=== PATIENT | female | born 1955 | race Caucasian/White ===

== ENCOUNTER 2017-01-02 02:10 | Emergency (ER) | payer OTHER ==
[2017-01-02 02:17] VITALS: BP 115/77; PULSE 90; TEMP 97.4; BMI 35.2
--- NOTE | 2017-01-02 02:31 | PDOC ---
"History of Present Illness - General Chief Complaint: Injury Stated Complaint: S/P FALL Time Seen by Provider: 01/02/17 02:11 - History of Present Illness Initial Comments: This 61-year-old woman with a history hypertension and Lalo's thyroiditis presents with history of falling in her driveway just prior to presentation. Patient was walking outside and stumbled on uneven pavement (no grade present in the driveway). Patient fell forward on outstretched hands hitting her chin and bilateral wrists. No loss of consciousness. Patient denies headache/neck pain/chest pain/shortness of breath/abdominal pain. Patient has mild contusions of bilateral knees but is able to walk without difficulty. Patient has pain and swelling in both wrist area (left greater than right); she also has bleeding from a small cut below her chin and soreness when she opens her mouth. She denies malocclusion or loosening of her teeth. Patient denies lightheadedness/vertigo or other impairment of gait prior to falling. Patient cannot recall previous tetanus immunization Past History - Past Medical History Allergies/Adverse Reactions: Allergies Allergy/AdvReac Type Severity Reaction Status Date / Time No Known Drug Allergies Allergy Verified 10/30/15 11:58 KIWI Allergy Intermediate MOUTH Uncoded 10/30/15 11:58 SWELLING, ITCHING Bee stings Allergy Swelling Uncoded 08/25/13 09:08 Home Medications: Ambulatory Orders Calcium Carbonate/Vitamin D3 [Calcium 600-Vit D3 200 Tablet] 1 each PO DAILY tablet 12/14/12 Cholecalciferol (Vitamin D3) [Vitamin D3] 1,000 unit PO DAILY tablet 05/12/13 Ascorbic Acid/Collagen Hydr [Collagen Plus Vit C Capsule] 1 each PO DAILY capsule 12/24/13 Hydroxychloroquine So4 [Plaquenil -] 200 mg PO BID tablet 08/19/14 Methotrexate Sodium [Methotrexate] 2.5 mg PO WEEKLY tablet 08/19/14 Biotin/Calcium Carbonate [Biotin 800 Mcg Tablet] 1 each PO DAILY tablet Folic Acid 2 mg PO DAILY tablet 12/09/14 Oxycodone HCl/Acetaminophen [Percocet 5-325 mg Tablet] 1 tab PO Q6H PRN #12 tablet MDD 3 tabs 01/02/17 Anemia: No Asthma: No Cancer: No Cardiac Disorders: Yes (MICROVASCULAR DISORDER- OCC. ANGINA) CVA: No COPD: No CHF: No Dementia: No Diabetes: No GI Disorders: No Disorders: No HTN: Yes (DX 2010) Hypercholesterolemia: No Liver Disease: No Psychiatric Problems: Yes Seizures: No Thyroid Disease: Yes (HASHIMOTOS) - Surgical History Abdominal Surgery: Yes (C- SECTION) Appendectomy: Yes (1999) Cardiac Surgery: No Cholecystectomy: No Lung Surgery: No Neurologic Surgery: No Orthopedic Surgery: No - Immunization History Td Vaccination: Yes Immunization Up to Date: (UNKNOWN) - Suicide/Smoking/Psychosocial Hx Smoking Status: Yes Smoking History: Former smoker Have you smoked in the past 12 months: Yes Number of Cigarettes Smoked Daily: 0 If you are a former smoker, when did you quit?: 09/2015 Information on smoking cessation initiated: No Hx Alcohol Use: No Drug/Substance Use Hx: No Substance Use Type: Alcohol Hx Substance Use Treatment: No Review of Systems - Review of Systems Able to Perform ROS?: Yes Comments:: 12 point review of systems is negative except for what is noted in the history of present illness *Physical Exam - Vital Signs Last Vital Signs Temp Pulse Resp BP Pulse Ox 97.4 F L 90 14 115/77 96 01/02/17 02:12 01/02/17 02:12 01/02/17 02:12 01/02/17 02:12 01/02/17 02:12 - Physical Exam Comments: GENERAL: Adult female, in moderate distress secondary to left wrist pain HEAD: Normal with no signs of trauma. EYES: PERRLA, EOMI, sclera anicteric, conjunctiva clear. ENT: Ears normal, nares patent, oropharynx clear without exudates. Moist mucous membranes. Nonbleeding small (2 mm) abrasion of upper lip Mild pain on opening of the jaw; no dental fractures or loosening; no tongue or lacerations Pain on palpation of left angle of the jaw and right body of the jaw; no step offs palpated Moderate edema/mild ecchymosis of the chin with full-thickness 0.5 cm linear laceration below chin (not through and through) | NECK: Normal range of motion, supple without lymphadenopathy, JVD, or masses. No neck tenderness LUNGS: Breath sounds equal, clear to auscultation bilaterally. No wheezes, and no crackles. CHEST WALL: No tenderness/crepitus/step offs palpated HEART:Regular rate and rhythm, normal S1 and S2 without murmur, rub or gallop. ABDOMEN:.normal bowel sounds No guarding,tenderness or rebound.No masses No distention. EXTREMITIES: Left upper extremityobvious deformity of distal ulna with apparent dorsal displacement No severe deformity of distal radius; distal forearm is tender/non-ecchymotic No deformity/edema/ tenderness of proximal upper extremity Neurovascular functioning is intact distally with warm/dry fingers and excellent capillary refill Right upper extremitymild dorsal deformity/tenderness/ edema of the distal forearm No edema/deformity/tenderness of proximal upper extremity Neurovascular function is intact distally warm dry fingers and excellent capillary refill NEUROLOGICAL: Cranial nerves II through XII grossly intact. Normal speech. No focal neurological deficits. MUSCULOSKELETAL: Back non-tender to palpation, no CVA tenderness Procedures - Laceration/Wound Repair Lower Face Wound Length: to 2.5 cm Wound Explored: clean Wound's Depth, Shape: linear Irrigated w/ Saline: Yes Betadine Prep: No (Hibiclens/ethanol) Anesthesia: 1% Lidocaine Amount of Anesthetic (ccs): 1 Wound Repaired With: Sutures Suture Size/Type: 6:0 Number of Sutures: 3 Sterile Dressing Applied: Yes Splint Applied: No Progress: Area of chin laceration prepped using ethanol/Hibiclens solution and sterilely draped area 1 mL of 1% lidocaine used for local anesthesia. Wound irrigated with 40 mL of sterile normal saline. Wound edges are clean and no debridement is necessary. Wound edges closely approximated and wound closed with 3 interrupted sutures of 6-0 nylon. Bacitracin applied to surface of the wound. Progress Note - Progress Note Progress Note: Bilateral forearm x-rays and mandible series performed. Mandible series appears to be normal without evidence of fracture/ dislocation Left distal forearm x-ray notable for a comminuted fracture of the distal radius with distal ulna styloid process fracture and dorsal dislocation of the distal ulna. No other fractures/dislocations seen. Right distal forearm x-ray shows fracture of the distal radius with nondisplaced ulnar styloid fracture. Results of studies discussed with the patient's orthopedist, . No reduction of the ulnar dislocation needed at this time since surgical reduction is required for stability. Patient given Percocet 5/325, 1 tab for analgesia Volar splint of Ortho-Glass material fashioned from distal palm to distal humerus and placed on the left upper extremity and secured with Yury wraps. Distal neurovascular functioning intact after placement of the splint. Short volar splint of Ortho-Glass material fashioned from mid palm to mid forearm and placed on the right upper extremity and secured with Yury wraps. Distal neurovascular functioning intact after placement of the splint. Patient tolerated placement of splint well. She was discharged in the company of her with instructions to contact Dr. Rios's office in the coming morning to arrange follow-up within the next 1-2 days. Meanwhile, she should elevate her arms as much as possible and use the sling on the left arm when up and around. She should use ibuprofen/naproxen/acetaminophen as needed for mild- to-moderate pain. Percocet 5/325 up to 3 times a day can be used for more severe pain. She should return to the ER if she has severe pain or experiences numbness/paresthesias in either hand. She should have sutures removed on Friday, January 07. Meanwhile, she should keep the area dry and apply bacitracin ointment daily *DC/Admit/Observation/Transfer Diagnosis at time of Disposition: Closed fracture of distal ends of radius and ulna of both forearms Qualifiers: Encounter type: initial encounter Qualified Code(s): S52.501A - Unspecified fracture of the lower end of right radius, initial encounter for closed fracture Chin laceration Qualifiers: Encounter type: initial encounter Qualified Code(s): S01.81XA - Laceration without foreign body of other part of head, initial encounter - Discharge Dispostion Disposition: HOME Condition at time of disposition: Stable - Prescriptions Prescriptions: Oxycodone HCl/Acetaminophen [Percocet 5-325 mg Tablet] 1 tab PO Q6H PRN #12 tablet MDD 3 tabs PRN Reason: Severe Pain - Referrals Referrals: Agapito Oquendo MD [Primary Care Provider] - Jerry Rios MD [Staff Physician] - 24 hours - Patient Instructions Printed Discharge Instructions: Colles' Fracture Additional Instructions: Keep both forearms elevated as much as possible Keep splints in place Use sling on left arm when up and around Motrin/naproxen/Tylenol as needed for mild pain Percocet 5/325 one tablet up to 3 times a day for severe pain Call orthopedic service () this coming morning to arrange follow-up within the next 1-2 days Bacitracin to chin laceration daily; no immersion of area until sutures removed Have sutures removed on January 07"
[2017-01-02] MEDS ORDERED: DIPHTH,PERTUSS(ACELL),TET 0.5 ML DISP.SYRIN IM ONE (05:28)
== END 2017-01-02 05:20 | disposition home or self-care (01) ==
LOC: FER 02:10
PROC: 3E0234Z Introduction of Serum, Toxoid and Vaccine into Muscle, Percutaneous Approach (ICD-10-PCS; principal; 2017-01-02)
PROC: 0HQ1XZZ Repair Face Skin, External Approach (ICD-10-PCS; 2017-01-02)
DX: S52.501A Unspecified fracture of the lower end of right radius, initial encounter for closed fracture (principal); S01.81XA Laceration without foreign body of other part of head, initial encounter; E06.3 Autoimmune thyroiditis; I10 Essential (primary) hypertension; F99 Mental disorder, not otherwise specified; Z87.891 Personal history of nicotine dependence; W18.39XA Other fall on same level, initial encounter; Y93.89 Activity, other specified; Y92.008 Other place in unspecified non-institutional (private) residence as the place of occurrence of the external cause
CPT/HCPCS: 70110-TC; 73110-TC-LT; 73110-TC-RT; 90715; 99283-25

== ENCOUNTER 2017-01-07 15:04 | Emergency (ER) | payer OTHER ==
[2017-01-07 15:10] VITALS: BP 138/76; PULSE 79; TEMP 98.1; BMI 29.9
--- NOTE | 2017-01-07 15:19 | PDOC ---
Suture Removal/Wound Check HPI - History of Present Illness Chief Complaint: Suture/Staple Removal(Here) Stated Complaint: SUTURE REMOVAL CHIN Time Seen by Provider: 01/07/17 15:16 Past History - Past Medical History Allergies/Adverse Reactions: Allergies Allergy/AdvReac Type Severity Reaction Status Date / Time No Known Drug Allergies Allergy Verified 10/30/15 11:58 KIWI Allergy Intermediate MOUTH Uncoded 10/30/15 11:58 SWELLING, ITCHING Bee stings Allergy Swelling Uncoded 08/25/13 09:08 Home Medications: Ambulatory Orders Calcium Carbonate/Vitamin D3 [Calcium 600-Vit D3 200 Tablet] 1 each PO DAILY tablet 12/14/12 Cholecalciferol (Vitamin D3) [Vitamin D3] 1,000 unit PO DAILY tablet 05/12/13 Ascorbic Acid/Collagen Hydr [Collagen Plus Vit C Capsule] 1 each PO DAILY capsule 12/24/13 Hydroxychloroquine So4 [Plaquenil -] 200 mg PO BID tablet 08/19/14 Methotrexate Sodium [Methotrexate] 2.5 mg PO WEEKLY tablet 08/19/14 Biotin/Calcium Carbonate [Biotin 800 Mcg Tablet] 1 each PO DAILY tablet Folic Acid 2 mg PO DAILY tablet 12/09/14 Oxycodone HCl/Acetaminophen [Percocet 5-325 mg Tablet] 1 tab PO Q6H PRN #12 tablet MDD 3 tabs 01/02/17 Anemia: No Asthma: No Cancer: No Cardiac Disorders: Yes (MICROVASCULAR DISORDER- OCC. ANGINA) CVA: No COPD: No CHF: No Dementia: No Diabetes: No GI Disorders: No Disorders: No HTN: Yes (DX 2010) Hypercholesterolemia: No Liver Disease: No Psychiatric Problems: Yes Seizures: No Thyroid Disease: Yes (HASHIMOTOS) - Surgical History Abdominal Surgery: Yes (C- SECTION) Appendectomy: Yes (1999) Cardiac Surgery: No Cholecystectomy: No Lung Surgery: No Neurologic Surgery: No Orthopedic Surgery: No - Immunization History Td Vaccination: Yes Immunization Up to Date: (UNKNOWN) - Suicide/Smoking/Psychosocial Hx Smoking Status: Yes Smoking History: Former smoker Have you smoked in the past 12 months: Yes Number of Cigarettes Smoked Daily: 0 If you are a former smoker, when did you quit?: 09/2015 Information on smoking cessation initiated: No Hx Alcohol Use: No Drug/Substance Use Hx: No Substance Use Type: Alcohol Hx Substance Use Treatment: No *DC/Admit/Observation/Transfer Diagnosis at time of Disposition: Encounter for removal of sutures - Discharge Dispostion Condition at time of disposition: Good Admit: No - Patient Instructions Printed Discharge Instructions: DI for Suture Removal Additional Instructions: Come back to ED for any new, worsening or concerning symptom.
== END 2017-01-07 15:26 | disposition home or self-care (01) ==
LOC: FER 15:04
DX: Z48.02 Encounter for removal of sutures (principal)
CPT/HCPCS: 99282-25

== ENCOUNTER 2017-09-03 10:03 | Day surgery (SDC) | payer OTHER ==
[2017-09-01 16:26] VITALS: BMI 29.9
[2017-09-03] MEDS ORDERED: PROPOFOL 20 ML ONE ×2 (16:17→16:42)
[2017-09-03] MEDS ORDERED: PROMETHAZINE HCL 25 MG/1 ML VIAL IVPUSH PRN (17:25)
[2017-09-03] MEDS ORDERED: ONDANSETRON 4 MG/2 ML VIAL IVPUSH PRN (17:25)
[2017-09-03] MEDS ORDERED: oxyCODONE HCL 5 MG TABLET PO PRN ×2 (17:25)
[2017-09-03] MEDS ORDERED: LACTATED RINGERS SOLUTION 1,000 ML IV SCH (17:45)
[2017-09-03 18:18] VITALS: TEMP 98.5
[2017-09-03] MEDS ORDERED: oxyCODONE HCL 5 MG TABLET ONE (18:18)
[2017-09-03 18:47] VITALS: BP 117/56; PULSE 82
--- NOTE | 2017-09-04 16:39 | OP ---
DATE OF ADMISSION: 09/03/2017 PREOPERATIVE DIAGNOSES: 1. Right distal humerus interarticular fracture, displaced. 2. Right olecranon displaced fracture. POSTOPERATIVE DIAGNOSES: 1. Right distal humerus interarticular fracture, displaced. 2. Right olecranon displaced fracture. OPERATIVE PROCEDURE: 1. Open reduction and internal fixation of right distal humerus intraarticular displaced fracture. 2. Open reduction and internal fixation of right olecranon fracture. SURGEON: Villa Morales MD ASSISTANT MEDIA BUYER: ERIC Cannon ANESTHESIA: Regional. COMPLICATIONS: None. ESTIMATED BLOOD LOSS: Minimal. INDICATION FOR PROCEDURE: The patient is a 62-year-old female with the above finding, indicated for operative treatment. Risks, benefits, and alternatives discussed. PROCEDURE: After proper identification of patient and correct operative site, patient was brought to operating room, placed supine on the operating table, all prominences well padded. Regional anesthesia was given along with sedation. The patient was placed into the lateral decubitus position with the left side down, right side up, with all points of contact well padded, an axillary roll placed. Intravenous antibiotics were given. Timeout procedure was performed. Right upper extremity was prepped and draped in usual sterile fashion. A well-padded tourniquet was placed with a sterile prep. Tourniquet was only inflated midway through the procedure and not for the approach, to achieve better hemostasis. A curvilinear incision was made over the posterior aspect of the elbow. Incision was taken sharply through skin, and blunt dissection through subcutaneous tissues. Flaps were elevated off of the extensor mechanism and olecranon. Olecranon fracture was identified, which was a transverse fracture with comminution. The triceps medially and laterally were divided and elevated, along with the distal fragment of the olecranon. This allowed for a trans-olecranon approach to the distal humerus. The ulnar nerve was dissected free and protected throughout the procedure. Distal humerus fracture was found to be a complex intraarticular fracture with a coronal shear fracture of the entire trochlea and capitellum, which exited in a sagittal fashion dorsally off of the lateral epicondyle. The entire lateral epicondyle was rotated and displaced along with the anterior articular fragments. The fracture was able to be reduced into its anatomic position with intraarticular alignment maintained. This was then held laterally over the lateral epicondyle with an Acumed distal humerus plate and another posterolateral plate. The posterolateral plate was used to secure the capitellum fragments with posterior to anterior locking screws. An additional Acutrak screw was placed intra-articularly across the fracture site. This provided secure sanam fracture fixation with satisfactory alignment. The olecranon was then repaired using an Acumed olecranon plate. As the proximal fragment was very fragmented and small, I also placed sutures to the triceps tendon and through the plate to give it extra security. The wound was repaired in layers including Vicryl sutures and skin lillian. Sterile dressings and a splint were placed. The patient was reversed from anesthesia and brought to recovery in stable condition. She tolerated the procedure well. Postoperatively, range of motion was full, both in flexion, extension, pronation and supination, and the elbow was stable. Salvador Bonilla, the talent assistant, was integral throughout the procedure. The procedure could not have been performed without a skilled operative talent assistant. VILLA MROALES M.D. [id number]
== END 2017-09-03 18:55 | disposition home or self-care (01) ==
LOC: FASU 10:03
PROVIDERS: ATTEND Orthopaedic Surgery Hand Surgery
PROC: 0PSK04Z Reposition Right Ulna with Internal Fixation Device, Open Approach (ICD-10-PCS; 2017-09-03)
PROC: 0PSF04Z Reposition Right Humeral Shaft with Internal Fixation Device, Open Approach (ICD-10-PCS; 2017-09-03)
PROC: 0PSF04Z Reposition Right Humeral Shaft with Internal Fixation Device, Open Approach (ICD-10-PCS; principal; 2017-09-03 14:03)
DX: S42.491A Other displaced fracture of lower end of right humerus, initial encounter for closed fracture (principal); S52.021A Displaced fracture of olecranon process without intraarticular extension of right ulna, initial encounter for closed fracture; X58.XXXA Exposure to other specified factors, initial encounter; Y93.9 Activity, unspecified; Y92.9 Unspecified place or not applicable
CPT/HCPCS: 24546; 24586; C1713; 73070-TC-RT-FY

== ENCOUNTER 2024-11-17 08:01 | Day surgery (SDC) | payer OTHER ==
[2024-11-15 15:27] VITALS: BMI 27.8
[2024-11-17 08:19] VITALS: RESP 18
[2024-11-17 09:36] VITALS: TEMP 97
[2024-11-17 09:49] VITALS: BP 138/60; PULSE 70
== END 2024-11-17 09:49 | disposition home or self-care (01) ==
LOC: FASU-ENDO 08:01
PROVIDERS: ATTEND Internal Medicine Gastroenterology
PROC: 0DJD8ZZ Inspection of Lower Intestinal Tract, Via Natural or Artificial Opening Endoscopic (ICD-10-PCS; principal; 2024-11-17 09:03)
DX: Z12.11 Encounter for screening for malignant neoplasm of colon (principal); K57.30 Diverticulosis of large intestine without perforation or abscess without bleeding